=== PATIENT | female | born 1970 | race Caucasian/White ===

== ENCOUNTER 2016-07-25 12:35 | Inpatient (IN) ==
--- NOTE | 2016-07-25 13:03 | Emergency Department Note ---
Disposition Clinical Impression: Chest pain Qualifiers: Chest pain type: unspecified Qualified Code(s): R07.9 - Chest pain, unspecified Myocardial infarction Qualifiers: Myocardial infarction ST status: non-ST elevation myocardial infarction Qualified Code(s): I21.4 - Non-ST elevation (NSTEMI) myocardial infarction Disposition: Admitted As Inpatient Referrals: Violetta Forrest MD [Primary Care Provider] - Forms: ED Satisfaction Letter Time of Disposition: 13:16 Chest Pain HPI - General Chief Complaint: ED Chest Pain Stated Complaint: abnormal EKG, back pain Time Seen by Provider: 07/25/16 12:48 Source: patient Mode of arrival: ambulatory Limitations: no limitations Vital Signs Reviewed: Yes Nursing Notes Reviewed: Yes - History of Present Illness HPI Narrative: 45-year-old whose been having some chest discomfort today. States it started in her back and she thought it was musculoskeletal she was seen at the urgent care and by her family doctor. After saw her today did an EKG and a set her in as she has some poor R-wave progression anteriorly and she has some changes on her EKG that are new. Pt complaint: chest pain Onset (ago): Just DATE PULLER Duration: constant Onset: during rest, during exertion Pain Location: substernal, left chest Severity: moderate Severity scale (1-10): 8 Quality: tightness Pain Radiation: none Improves with: nothing Worsens with: nothing Associated symptoms: Denies: nausea, vomiting, diaphoresis - Related Data Home Medications Medication Instructions Recorded Confirmed Ascorbic Acid [Vitamin C] 100 mg PO DAILY 11/04/15 07/25/16 Cranberry Fruit Extract [Cranberry] 425 mg PO DAILY 11/04/15 07/25/16 Fluticasone Propionate Nasal 2 spr NS DAILY 11/04/15 07/25/16 [Flonase] Multivitamin [Multivitamins] 1 cap PO DAILY 11/04/15 07/25/16 Norethindrone Acetate 5 mg PO HS 11/04/15 07/25/16 Omeprazole 20 mg PO DAILY 11/04/15 07/25/16 Previous Rx's Medication Instructions Recorded Ibuprofen [Motrin] 600 mg PO Q6HR PRN #30 tab 11/04/15 Cyclobenzaprine [Flexeril] 10 mg PO TID #15 tablet 07/24/16 MethylPREDNISolone [Medrol] 4 mg PO TAPER #21 tablet 07/24/16 Allergies Allergy/AdvReac Type Severity Reaction Status Date / Time aspirin AdvReac Gastrointestinal Verified 07/25/16 13:29 Upset sertraline [From Zoloft] AdvReac Gastrointestinal Verified 07/25/16 13:29 Upset Constitutional: Denies: fever, chills, weakness, weight change Eyes: Denies: eye pain, eye discharge, vision change ENT ED: Denies: ear pain, throat pain, dental pain, hearing loss, epistaxis, congestion, dysphagia Cardiovascular: Reports: chest pain. Denies: palpitations, dyspnea on exertion , edema, syncope Respiratory: Denies: cough, dyspnea, wheezes, hemoptysis, stridor Gastrointestinal: Denies: abdominal pain, nausea, vomiting, diarrhea, constipation, hematemesis, melena, hematochezia Genitourinary: Denies: dysuria, frequency, hematuria, discharge Musculoskeletal: Reports: back pain. Denies: neck pain, arthralgia, myalgia Integumentary: Denies: rash, abrasion, lesions Neurological: Denies: headache, weakness, numbness, paresthesias, confusion, abnormal gait, vertigo Psychiatric: Denies: anxiety, depression, suicidal thoughts, homicidal thoughts , auditory hallucinations, visual hallucinations Endocrine: Denies: fatigue Hematological/Lymphatic: Denies: easy bleeding, easy bruising Allergic/Immunologic: Denies: facial swelling, urticaria Chest Pain PMH - Past Medical History Medical history: Reports: other Surgical history: Reports: cholecystectomy Psychiatric history: Reports: no psych history - Social History Smoking Status: Current every day smoker Alcohol use: Reports: none Drug use: Reports: none Physical Exam - General Limitations: no limitations General appearance: alert - Head Head exam: atraumatic, normocephalic, normal inspection - Eye Eye exam: Present: normal appearance, PERRL, EOMI - ENT ENT exam: normal exam, normal oropharynx, mucous membranes moist - Neck Neck exam: Present: normal inspection, full ROM, trachea midline - Chest Chest inspection: Present: normal inspection, symmetric chest wall rise - Respiratory Respiratory exam: Present: normal lung sounds bilaterally - Cardiovascular Cardiovascular exam: Present: regular rate, normal rhythm, normal heart sounds - Abdominal Exam Abdominal exam: Present: soft, Non-Tender. Absent: tenderness, distention, guarding, rebound, rigidity - Extremities Exam Extremities exam: Present: normal inspection, full ROM. Absent: tenderness, pedal edema - Expanded Lower Extremity Exam Neurovascular/Tendon exam: Absent: motor deficit, sensory deficit, tendon deficit Gait: observed and normal - Back Exam Back exam: Present: normal inspection, full ROM. Absent: tenderness - Neurological Exam Neurological exam: Present: alert, oriented X3 - Psychiatric Psychiatric exam: Present: normal affect, normal mood - Skin Skin exam: Present: warm, dry, intact, normal color Course - Consultations Consultation #1: Discussed with Dr. Mendoza, we will send copies of the EKG to the patient. Time: 13:03 Consultation #2: Dr. Mendoza reviewed the EKG and will take the patient to the laboratory administrative director. Dr. Mendoza does not want a STEMI called. Animal Shelter Manager was notified of the positive troponin at 21+. Brelinta and heparin were not given in the ER per request of cardiology. Time: 13:14 Vital Signs Temperature 98.0 F 07/25/16 12:40 Pulse Rate 110 07/25/16 12:40 Respiratory Rate 16 07/25/16 12:40 Blood Pressure 122/85 07/25/16 12:40 O2 Sat by Pulse Oximetry 100 07/25/16 12:40 Temperature 98.0 F 07/25/16 12:40 Pulse Rate 123 07/25/16 13:21 Respiratory Rate 16 07/25/16 13:30 Blood Pressure 147/101 07/25/16 13:30 O2 Sat by Pulse Oximetry 100 07/25/16 13:21 Oxygen Delivery Oxygen Delivery Room Air Chest Pain - Lab Data Result diagrams: 07/25/16 13:03 07/25/16 13:03 Lab Results 07/25/16 07/25/16 07/25/16 Range/Units 13:03 13:03 13:03 WBC 21.1 H (4.3-11.1) K/mcL RBC 4.75 (3.82-4.97) M/mcL Hgb 15.4 (11.5-15.4) g/dL Hct 45.6 H (35.3-44.9) % MCV 96.0 (83.0-100.0) fL MCH 32.4 (28.0-33.3) pg MCHC 33.8 (31.6-35.5) g/dL RDW 13.2 (11.5-14.5) % Plt Count 191 (140-400) K/mcL MPV 10.7 (9.4-12.4) fL Immature Gran % 0.4 (0-4) % Seg Neutrophils % 70.4 % Lymphocytes % 22.5 % Monocytes % 5.9 % Eosinophils % 0.5 % Basophils % 0.3 % Neutrophils # 14.8 H (1.6-8.9) K/mcL Lymphocytes # 4.8 H (0.6-4.6) K/mcL Monocytes # 1.3 (0.0-1.3) K/mcL Eosinophils # 0.1 (0.0-0.6) K/mcL Basophils # 0.1 (0.0-0.2) K/mcL PT 10.5 (9.4-12.1) Seconds INR 1.0 APTT 38.2 H (26.0-36.0) Seconds Sodium 140 (136-145) mEq/L Potassium 3.5 (3.5-4.5) mEq/L Chloride 106 (98-109) mEq/L Carbon Dioxide 22 (19-29) mEq/L BUN 7 (7-20) mg/dL Creatinine 0.76 (0.57-1.11) mg/dL Est GFR ( Amer) > 60 (> 60) Est GFR (Non-Af Amer) > 60 (> 60) BUN/Creatinine Ratio 9 (6-26) Glucose 94 (70-99) mg/dL Calculated Osmolality 288 (280-300) Calcium 9.6 (8.6-10.8) mg/dL Troponin I (0-0.03) ng/mL 07/25/16 Range/Units 13:03 WBC (4.3-11.1) K/mcL RBC (3.82-4.97) M/mcL Hgb (11.5-15.4) g/dL Hct (35.3-44.9) % MCV (83.0-100.0) fL MCH (28.0-33.3) pg MCHC (31.6-35.5) g/dL RDW (11.5-14.5) % Plt Count (140-400) K/mcL MPV (9.4-12.4) fL Immature Gran % (0-4) % Seg Neutrophils % % Lymphocytes % % Monocytes % % Eosinophils % % Basophils % % Neutrophils # (1.6-8.9) K/mcL Lymphocytes # (0.6-4.6) K/mcL Monocytes # (0.0-1.3) K/mcL Eosinophils # (0.0-0.6) K/mcL Basophils # (0.0-0.2) K/mcL PT (9.4-12.1) Seconds INR APTT (26.0-36.0) Seconds Sodium (136-145) mEq/L Potassium (3.5-4.5) mEq/L Chloride (98-109) mEq/L Carbon Dioxide (19-29) mEq/L BUN (7-20) mg/dL Creatinine (0.57-1.11) mg/dL Est GFR ( Amer) (> 60) Est GFR (Non-Af Amer) (> 60) BUN/Creatinine Ratio (6-26) Glucose (70-99) mg/dL Calculated Osmolality (280-300) Calcium (8.6-10.8) mg/dL Troponin I 21.96 H* (0-0.03) ng/mL - EKG Data EKG attestation: Yes I reviewed and interpreted this EKG. EKG shows normal: sinus rhythm Rate: tachycardia Heart Score - Score History: Moderately Suspicious EKG: Significant ST-Depression Age: Less than 45 Risk Factors: 1-2 risk factors Troponin: Less than normal limit HEART Score Total: 4
[2016-07-25] MEDS ORDERED: Aspirin 81 MG TAB.CHEW PO STA (13:15)
[2016-07-25 13:17] LABS: Prothrombin Time 10.5 Seconds (9.4-12.1)
[2016-07-25 13:19] LABS: Activated Partial Thrombo Time 38.2 Seconds (26.0-36.0); Basophils # 0.1 K/mcL (0.0-0.2); Basophils % 0.3 %; Eosinophils # 0.1 K/mcL (0.0-0.6); Eosinophils % 0.5 %; Hematocrit 45.6 % (35.3-44.9); Hemoglobin 15.4 g/dL (11.5-15.4); Immature Granulocytes % 0.4 % (0-4); Lymphocytes # 4.8 K/mcL (0.6-4.6); Lymphocytes % 22.5 %; Mean Corpuscular HGB Conc 33.8 g/dL (31.6-35.5); Mean Corpuscular Hemoglobin 32.4 pg (28.0-33.3); Mean Platelet Volume 10.7 fL (9.4-12.4); Monocytes # 1.3 K/mcL (0.0-1.3); Monocytes % 5.9 %; Neutrophils # 14.8 K/mcL (1.6-8.9); Platelet Count 191 K/mcL (140-400); Red Blood Count 4.75 M/mcL (3.82-4.97); Red Cell Distribution Width 13.2 % (11.5-14.5); Segmented Neutrophils % 70.4 %
[2016-07-25 13:22] LABS: BUN/Creatinine Ratio 9 (6-26); Blood Urea Nitrogen 7 mg/dL (7-20); Calcium 9.6 mg/dL (8.6-10.8); Carbon Dioxide 22 mEq/L (19-29); Chloride 106 mEq/L (98-109); Glucose 94 mg/dL (70-99); Osmolality,Calculated 288 (280-300); Potassium 3.5 mEq/L (3.5-4.5); Sodium 140 mEq/L (136-145); eGFR For African Americans > 60 (> 60); eGFR For Non-African Americans > 60 (> 60)
[2016-07-25] MEDS ORDERED: Verapamil 5 MG/2 ML VIAL ONE (13:22)
[2016-07-25] MEDS ORDERED: Nitroglycerin 1,000 MCG/10 ML VIAL IV ONE (13:23)
[2016-07-25] MEDS ORDERED: *HR* Heparin 10,000 UNIT/10 ML VIAL ONE (13:23)
[2016-07-25] MEDS ORDERED: Heparin 1,000 UNITS/500 mL NS 500 ML ONE (13:23)
--- NOTE | 2016-07-25 13:32 | Pre-Sedation Evaluation ---
Pre-sedation evaluation - Pre-sedation checklist Date of procedure: 07/25/16 Procedure: [facility] Recent Vitals: Last Vital Signs Temp 98.0 F 07/25/16 12:40 Pulse 123 07/25/16 13:21 Resp 16 07/25/16 13:30 BP 147/101 07/25/16 13:30 Pulse Ox 100 07/25/16 13:21 H&P (including ROS) documented in medical record: Yes Previous reaction to sedatives/anesthetics: No Dietary Status: NPO after Midnight Airway Assessment: Patient can open mouth completely, TMJ function normal ASA Classification *see protocol: CLASS II-Mild systemic disease Plan of Care: Pt appropriate candidate for procedure/moderate/conscious sedation , Risks/benefits of procedure/sedation discussed w/ patient/family
[2016-07-25] MEDS ORDERED: 0.9 % Sodium Chloride 1,000 ML ONE ×2 (13:38→14:26)
[2016-07-25] MEDS ORDERED: *HR* Midazolam HCl 2 MG/2 ML VIAL ONE ×2 (13:39→13:43)
[2016-07-25] MEDS ORDERED: *HR* FentaNYL (PF) 100 MCG/2 ML VIAL ONE (13:39)
[2016-07-25] MEDS ORDERED: Tirofiban 5 MG/100ML 5 MG/100 ML BAG IV ONE (14:10)
[2016-07-25] MEDS ORDERED: *HR* Ticagrelor 90 MG TABLET ONE (14:15)
--- NOTE | 2016-07-25 14:41 | Invasive Diagnostic Lab Proc ---
Name: Elissa Cancino Date of Study: 07/25/2016 Date: 1970 Ht: 65.0in Medical Record#: [id number] Age: 45 Wt: 137.79lb Gender: Female BSA: 1.69 Order #: [id number] BMI: 22.96 Physicians Procedure Physician: Alton Mendoza MD, [facility] Referring MD: Referring MD: Staff Name Position Time In Jackie Leung RN Track Production Engineer 01:36 PM Linda Garvin RT (R) Monitor 01:36 PM Marcia Rosa RT (R) Scrub 01:36 PM Indications Indication Non-Stemi Procedures Performed Procedure L HRT ARTERY/VENTRICLE ANGIO PRQ CARD YOHANA STENT W/ANGIO 1 VSL Pre-Procedure Checklist Informed consent is complete signed and on chart. H\\T\\P is on chart. ID band is on and ID verified with patient. Patient NPO for procedure The procedure was described for the patient and questions were answered. Blood Pressure: 122/92 ECG is on chart. Rhythm: NSR Plan of Care Patient will tolerate the procedure without complications. Adequate level of comfort will be maintained. Hemodynamics will remain stable Patient will recover from procedure without complications. Respiratory function will be maintained. Cardiac rhythm will remain stable. Patient temperature will be maintained. Patient and/or family have verbalized understanding of the procedure. Patient Education Chief Complaint/Reason for Test: Cardiac Cath Developmental Category: Adult (18-64 years) Developmentally Appropriate for Age: Yes Learning Barriers: None Education Needs: Procedure Education Method: Verbal Information Taught: Cardiac Cath Educational Evaluation: Able to repeat information Intravenous Access Time IV Size Location DC'd Fluid/Drip Rate Units RN 01:35 PM 18g 1 1/4" Patent On Arrival Rt Antecubital Jackie Leung RN 01:35 PM 18g 1 1/4" Patent On Arrival Lt Antecubital 0.9NaCl 25 ml/hr Jackie Leung RN Allergies ASA-IRRITATES STOMACH;ZOLOFT-HEART RATE sertraline Salicylate, Aspirin SSRI aspirin Vital Signs Time BP (mmHg) HR (bpm) O2 Sat. RR (bpm) LOC 01:38 PM / % 5 = Fully awake and oriented or at pre-proc level 01:38 PM / % 4 = Oriented but drowsy 01:53 PM / % 4 = Oriented but drowsy 02:08 PM / % 5 = Fully awake and oriented or at pre-proc level 01:38 PM 122 / 92 105 100 % 9 01:43 PM 131 / 88 101 100 % 10 01:48 PM 124 / 73 94 100 % 20 01:53 PM 122 / 79 100 100 % 20 01:58 PM 120 / 74 110 100 % 21 02:03 PM 110 / 73 94 100 % 14 02:08 PM 118 / 77 96 100 % 34 02:13 PM 122 / 65 121 100 % 22 02:18 PM 129 / 80 86 100 % 17 02:23 PM 109 / 68 93 100 % 02:28 PM 114 / 68 % Procedural Medications Time Medication Dose Units Method Given By 01:37 PM Oxygen 2 L/min nasal cannula Jackie Leung RN 01:40 PM Lidocaine 2% 17 ml Subcutaneous Alton Mendoza MD, FACC 01:40 PM Versed 2 mg Intravenous Jackie Leung RN 01:40 PM Fentanyl 50 mcg Intravenous Jackie Leung RN 01:42 PM Versed 1 mg Intravenous Jackie Leung RN 01:42 PM Fentanyl 25 mcg Intravenous Jackie Leung RN 01:58 PM Heparin 3000 units Intravenous Jackie Leung RN 02:11 PM Nitroglycerin 200 mcg Intracoronary Alton Mendoza MD 02:12 PM Aggrastat Bolus: 33 ml Intravenous Jackie Leung RN 02:14 PM Aggrastat 12.5mg/250ml 12 ml/hr Intravenous Jackie Leung RN 02:17 PM Brilinta 180 mg Orally Jackie Leung RN ASA Classification: CLASS II- Mild systemic disease (i.e. well-controlled diabetes, hypertension, asthma, cigarette smoking) Laine Score Preprocedure Postprocedure Activity 2- Moves 4 extremities sustained head lift Activity 2- Moves 4 extremities sustained head lift Circulation 2- SBP +/= 20 points of pre-anesthetic level Circulation 2- SBP +/= 20 points of pre-anesthetic level Consciousness 2- Awake and alert oriented x 3 Consciousness 2- Awake and alert oriented x 3 O2 Saturation 2- Able to maintain O2 satruation of 92% on room air O2 Saturation 2- Able to maintain O2 satruation of 92% on room air Respiratory 2- Able to deep breathe and cough well Respiratory 2- Able to deep breathe and cough well Total Score 10 Total Score 10 Contrast Agent: Isovue Diagnostic Contrast: 170 ml Total Contrast: 170 ml Fluoro Dose: 280 mGy Activated Clotting Time Time Seconds to Clot 02:21 PM 236 Procedure Log Time Note Enter By :36 PM Physician arrived :36 36 PM Pt arrived to phlebotomist medical lab assistant 2 at :36 PM Jackie Leung RN Position: Track Production Engineer Time in: 36 PM Linda Garvin RT (R) Position: Monitor Time in: 36 PM Marcia Rosa RT (R) Position: Scrub Time in: :36 36 PM Patient charges- Angio tray pack, Navilyst 3mm J, Pulse Oximetry and ACIST tubing and transducer PM IV Supplies used: J loop Angio Cath. PM Physician arrived :37 PM ASA Class CLASS II- Mild systemic disease (i.e. well-controlled diabetes, hypertension, asthma, cigarette smoking) PM Sign in performed according to hospital policy. Procedure start : PM Time: 13:37 Oxygen on at 2 L/min per nasal cannula by Jackie Leung RN PM Vitals capture started with the following parameters, Patient=Adult, Interval=5 min, Initial Klxsghce=527 mmHg, Deflation Rate=5 mmHg, Cuff placed on Right Arm :37 PM CathStat :38 PM QI=104 bpm, QVPQ=937/92 mmhg, PrF1=515.0 %, Resp=9 B/min :38 PM Time: 13:37 Patient comfortable and pain free: Yes Time: :38LOC: 5 = Fully awake and oriented or at pre-proc level PM Clinical Presentation: Non-STEMI PM Time out performed according to hospital policy PM Time: 13:40 17 ml Lidocaine 2% to right groin Subcutaneous Given by Alton Mendoza MD, [facility] PM Time: 13:40 Versed 2 mg Intravenous Given by Jackie Leung RN PM Time: 13:40 Fentanyl 50 mcg Intravenous Given by Jackie Leung RN dspellman 01:41 PM Pressure channel 1 zeroed. 01:42 PM Time: 13:42 Versed 1 mg Intravenous Given by Jackie Leung RN dspellman 01:43 PM Time: 13:42 Fentanyl 25 mcg Intravenous Given by Jackie Leung RN dspellman 01:43 PM AP=905 bpm, IYSV=326/88 mmhg, OjK8=761.0 %, Resp=10 B/min 01:44 PM Access obtained by percutaneous puncture. 6Fr 10cm Terumo Maybell sheath placed in right Femoral artery. [id number] dspellman 01:44 PM 6Fr EBU 3.5 Activaided Orthoticstronic guide catheter was used to cannulate the PCI vessel successfully. reused? No dspellman :44 PM 0.035 145cm Navilyst 3mmJ wire [id number] dspellman 01:44 PM LCA angiography performed in multiple views. dspellman 01:45 PM Recorded Pressure: Ao, HR=95, Condition=Condition 1 (Aorta) Ao 121/79/98 01:46 PM Recorded Pressure: Ao, QA=737, Condition=Condition 1 (Aorta) Ao 118/78/96 01:47 PM Catheter removed dspellman 01:47 PM 5Fr FR 4 catheter inserted over the wire [facility] dspellman 01:47 PM RCA angiography performed in multiple views. dspellman 01:48 PM HR=94 bpm, FBNV=666/73 mmhg, MjA2=729.0 %, Resp=20 B/min 01:49 PM Lesion found in 1st Diagonal. Pre Stenosis: 70 Pre AYLA Flow: 3: Complete and Brisk Flow/Perfusion dspellman 01:49 PM Catheter removed dspellman 01:49 PM 5Fr Pigtail catheter inserted over the wire [facility] dspellman 01:49 PM Catheter selectively placed in left ventricle dspellman 01:50 PM Recorded Pressure: LV, SF=545, Condition=Condition 1 (Left Ventricle) LV 114/24/67 01:50 PM Recorded Pressure: LV, HR=94, Condition=Condition 1 (Left Ventricle) LV 134/13/69 01:51 PM Bolus angiogram of left Ventricle complete: 10 ml/sec for a total of 30 mls dspellman 01:51 PM Bolus angiogram of left Ventricle complete: 11 ml/sec for a total of 35 mls dspellman 01:52 PM Recorded Pressure: LV, Ao, HR=96, Condition=Condition 1 (Left Ventricle) LV 119/-1/17, (Aorta) Ao 122/72/98 01:53 PM CS=333 bpm, ZPEU=833/79 mmhg, YzY3=500.0 %, Resp=20 B/min, Comment=NSR :53 PM Time: 13:38LOC: 4 = Oriented but drowsy dspell:53 PM Time: 13:38 Patient comfortable and pain free: Yes dspell 01:54 PM Catheter removed dsp:54 PM reviewing images dspell 01:55 PM 5Fr FL 4 catheter inserted over the wire DNC dspell:57 PM Catheter removed dspell:57 PM 6Fr EBU 3.25 Medtronic guide catheter was used to cannulate the PCI vessel successfully. reused? No 01:58 PM TN=211 bpm, JPWK=560/74 mmhg, WiF7=012.0 %, Resp=21 B/min, Comment=NSR :58 PM Time: 13:58 Heparin 3000 units Intravenous Given by Jackie Leung RN Berry pump ell 01:59 PM Recorded Pressure: Ao, HR=95, Condition=Condition 1 (Aorta) Ao 115/73/91 02:00 PM .014 PT Graphix 182cm guide wire across target lesion- successful. reused? No dsp 02:00 PM Inflation device was opened. dspell 02:01 PM Recorded Pressure: Ao, HR=95, Condition=Condition 1 (Aorta) Ao 106/73/88 02:01 PM wire out to reshape dspell 02:03 PM HR=94 bpm, QPHS=457/73 mmhg, CwO8=823.0 %, Resp=14 B/min, Comment=NSR 02:05 PM Recorded Pressure: Ao, UJ=253, Condition=Condition 1 (Aorta) Ao 101/73/87 02:06 PM PCI lesion in 1st Diagonal. dspell 02:06 PM wire in the 1st diag dspell 02:07 PM 2.0 mm x 8 mm Emerge Monorail balloon across target lesion- successful. reused? No dspellman 02:08 PM HR=96 bpm, ZMQJ=200/77 mmhg, BpO7=491.0 %, Resp=34 B/min, Comment=NSR 02:08 PM Time: 13:53 Patient comfortable and pain free: Yes dspell 02:08 PM Time: 13:53LOC: 4 = Oriented but drowsy dspell 02:09 PM Balloon inflated @ 12 neha for 30 seconds dspell 02:10 PM Balloon catheter removed intact. dspell 02:10 PM 2.25mm x 16mm Synergy drug-eluting stent across target lesion- successful Lot #[id number] dspell 02:11 PM Time: 14:11 Nitroglycerin 200 mcg Intracoronary Given by Alton Mendoza MD dsp 02:12 PM Stent deployed @ 14 neha for 30 seconds dspell 02:13 PM PB=296 bpm, WVZY=780/65 mmhg, ViA5=376.0 %, Resp=22 B/min, Comment=NSR 02:13 PM Time: 14:12 Aggrastat Bolus: 33 ml Intravenous Given by Jackie Leung RN Berry pump dspell 02:13 PM Stent delivery system removed intact. dspell 02:13 PM Guide wire removed intact. dsp 02:14 PM Guide catheter removed intact. 02:14 PM Recorded Pressure: Ao, GB=422, Condition=Condition 1 (Aorta) Ao 116/70/89 02:15 PM Time: 14:14 Aggrastat 12.5mg/250ml 12 ml/hr Intravenous Given by Jackie Leung RN Berry pump 02:17 PM Time: 14:17 Brilinta 180 mg Orally Given by Jackie Leung RN khushi 02:18 PM HR=86 bpm, TZLW=233/80 mmhg, UdF4=262 %, Resp=17 B/min 02:21 PM At 14:21 the ACT was 236 seconds. ell 02:22 PM Procedure completed at 14:22 dspell:23 PM Sign out completed: Radiation Dose 280.04 mGy Fluoro Time: 7.0 Isovue 370 - 200ml contrast 170.2 ml given by Alton Mendoza MD, FACC. Complications: NoneCardiac Rehab Consult needed: YesConfirmed administered medications: Yes dspell:23 PM Isovue 370 - 200ml,1 Bottle(s) used. :23 PM Sheath left in place to be pulled on floor/holding areaV+Pad dspellman 02:23 PM HR=93 bpm, CAEF=392/68 mmhg, QjE9=592.0 % 02:23 PM Post ECG NSR dspell:23 PM Post Blood Pressure 109/68 dspell:25 PM Time: 14:08LOC: 5 = Fully awake and oriented or at pre-proc level dsp:25 PM Time: 14:08 Patient comfortable and pain free: Yes : PM 14:25 Post Pulses Bilateral DP \\T\\ PT 2+ dsp 02:25 PM Information taught Cardiac Cath : PM Education needs Procedure and Plan of Care dsp: PM Learning barriers :None :25 PM Education Methods Verbal : PM Education evaluation Able to repeat information : PM Site status No bleeding/hematoma - Rt Groin as reported by Marcia Rosa RT (R) at 14:26 ell 02:26 PM Opsite applied : PM Report given to Anyi MART Pt taken to 2N Room #12. 14:26 dsp 02: PM Family placed in consult room. 02:27 PM Complications: None : PM Fluoro Time: 7 : PM Isovue 370 - 200ml contrast 170.2 ml given by Alton Mendoza MD, [facility]. :27 PM Radiation Dose 280.04 mGy 02:28 PM WXDI=325/68 mmhg, Comment=NSR Complications Complication None None Hemodynamics Pressures Site Systolic/A Wave Diastolic/V Wave Mean AO 121 79 98 AO 118 78 96 LV 114 24 67 LV 134 13 69 LV 119 -1 17 AO 122 72 98 AO 115 73 91 AO 106 73 88 AO 101 73 87 AO 116 70 89 Post Procedure Information Blood Pressure: 109/68 mmHg Rhythm: NSR Post procedural instructions were given Closure Device Time Device Success/Fail 07/25/2016 2:27:00 PM Site Checks Time Location Status Staff Sheath In? Note 02:26 PM Rt Groin No bleeding/hematoma Marcia Rosa RT (R) Yes Pulses Time Site Pre-Procedure Post-Procedure Note 07/25/2016 1:36:00 PM Bilateral DP \\T\\ PT 07/25/2016 1:36:00 PM Bilateral radial 2:25:00 PM Bilateral DP \\T\\ PT 2+ Updated by Linda Garvin, RT (R) on 07/25/2016 2:36:18 PM Linda Garvin RT electronically signed on 07/25/2016 2:37:09 PM with status of Final
[2016-07-25] MEDS ORDERED: *HR* Morphine 2 MG/ML SYRINGE IVP ONE (15:23)
[2016-07-25] MEDS ORDERED: Acetaminophen 325 MG TABLET PO PRN (15:27)
[2016-07-25] MEDS ORDERED: Ondansetron 4 MG/2 ML VIAL IVP PRN (15:29)
[2016-07-25] MEDS ORDERED: Tirofiban 12.5 MG/250ML 12.5 MG/250 ML BAG IVC SCH (15:30)
[2016-07-25] MEDS ORDERED: Nitroglycerin 0.4 MG TAB.SUBL SL PRN (15:35)
[2016-07-25] MEDS: 0.9 % Sodium Chloride 1,000 ML IVC SCH ×2 (15:50→23:20)
--- NOTE | 2016-07-25 15:50 | Cardiology History & Physical ---
Date of Encounter: 07/25/16 Time of Encounter: 15:30 Assessment and Plan (1) Non-STEMI (non-ST elevated myocardial infarction) Current Visit: Yes Status: Acute Acute TX with troponin ~21 and ongoing chest discomfort with concern for lateral current of injury not meeting STEMI criteria. Emergent LHC, aspirin, heparin and EF assessment. The assessment and plan as outlined above was discussed with the patient and/or family members who expressed understanding and agreement. All questions were answered. (2) Nicotine dependence Current Visit: Yes Status: Acute smoking cessation counseled, nicotine patch prn. The assessment and plan as outlined above was discussed with the patient and/or family members who expressed understanding and agreement. All questions were answered. Qualifiers: Nicotine product type: cigarettes Substance use status: uncomplicated Qualified Code(s): F17.210 - Nicotine dependence, cigarettes, uncomplicated History of Present Illness Chief complaint: Chest pain HPI: Ms. Cancino is a 45 year old female smoker and no previous cardiac history presented with Monday onset of severe upper back radiating around to chest discomfort going to urgent care on Monday treated for musculoskeletal pain, seen at PCP office Monday with abnormal EKG referred to ED. She had ongoing chest pain and lateral current of injury not meeting STEMI criteria. Patient emergently taken to [facility]. Past Med Surg Social Fam HX - Past Medical History Medical history: other Psychiatric history: no psych history - Past Surgical History Surgical History: cholecystectomy - Social History Smoking Status: Current every day smoker Packs per day: 1.5 Smokeless Tobacco Status: No Alcohol use: none Drug use: none Medications and Allergies Ascorbic Acid [Vitamin C] 100 mg PO DAILY 11/04/15 [History] Cranberry Fruit Extract [Cranberry] 425 mg PO DAILY 11/04/15 [History] Fluticasone Propionate Nasal [Flonase] 2 spr NS DAILY 11/04/15 [History] Ibuprofen [Motrin] 600 mg PO Q6HR PRN #30 tab 11/04/15 [Rx] Multivitamin [Multivitamins] 1 cap PO DAILY 11/04/15 [History] Norethindrone Acetate 5 mg PO HS 11/04/15 [History] Omeprazole 20 mg PO DAILY 11/04/15 [History] Cyclobenzaprine [Flexeril] 10 mg PO TID #15 tablet 07/24/16 [Rx] MethylPREDNISolone [Medrol] 4 mg PO TAPER #21 tablet 07/24/16 [Rx] Allergies aspirin Adverse Reaction (Verified 07/25/16 13:29) Gastrointestinal Upset sertraline [From Zoloft] Adverse Reaction (Verified 07/25/16 13:29) Gastrointestinal Upset All Systems Review: A 10-system review of systems was performed and is negative for pertinent findings except as documented above in the HPI. - Constitutional Constitutional: no chills, no fever(s) - EENT Eyes: no blurred vision, no loss of vision - Cardiovascular Cardiovascular: chest pain at rest, chest pain with exertion - Respiratory Respiratory: no hemoptysis, no wheezing - Gastrointestinal Gastrointestinal: no hematemesis, no hematochezia - Genitourinary Genitourinary: no dysuria, no hematuria - Musculoskeletal Musculoskeletal: back pain, no muscle weakness - Integumentary Integumentary: no rash, no unusual bruising - Neurological Neurological: no memory loss, no numbness - Psychiatric Psychiatric: no hallucinations, no panic attacks - Hematological/Lymphatic Hematologic/Lymphatic: no easy bleeding, no easy bruising Physical Examination Vital Signs, Last 4 Hours Temp Pulse Pulse Resp BP Pulse Ox 07/25/16 14:52 98.2 F 88 16 121/82 100 07/25/16 14:50 88 81 12 121/82 100 General: Conversant, Other (mild distress) HEENT: Atraumatic, Normocephaly, Mucus Membranes Moist Neck: No JVD Cardiac: Reg Rate and Rhythm, No Murmur Lungs: Normal Breath Sounds Neuro: Alert and responsive, No focal deficits noted Abdomen: Soft, Non-Tender Skin: No rashes noted on visualized skin Musculoskeletal: No Chest Wall Tenderness Extremities: No Edema Results 07/25/16 13:03 07/25/16 13:03 - EKG Interpretation EKG results cardiology: personally reviewed
[2016-07-25] MEDS: *HR* OxyCODONE/APAP 5/325 TABLET PO PRN ×2 (17:15→22:40)
--- NOTE | 2016-07-25 18:22 | Event Note ---
Date of Encounter: 07/25/16 Time of Encounter: 14:00 - Cardiology Event Note s/p PCI diagonal YOHANA x 1 for NSTEMI 70% and lateral current of injury. Anterolateral hypokinesis on LVgram with EF ~45%. Also evaluated for occluded OM, but no occluded vessel was found or wired. At conclusion of procedure, patient asymptomatic and vitals stable.
[2016-07-25] MEDS: Nicotine 21 MG PATCH.TD24 TD SCH (19:27)
[2016-07-25] MEDS ORDERED: *HR* Atropine Sulfate 1 MG/10 ML SYRINGE ONE (21:31)
[2016-07-25] MEDS: *HR* Ticagrelor 90 MG TABLET PO SCH (22:41)
[2016-07-25] MEDS ORDERED: NORETHINDRONE 5MG PO SCH (23:00)
[2016-07-26] MEDS: *HR* OxyCODONE/APAP 5/325 TABLET PO PRN (02:49)
[2016-07-26 05:49] LABS: Basophils % 0.2 %; Red Cell Distribution Width 13.2 % (11.5-14.5)
[2016-07-26 05:51] LABS: Eosinophils # 0.1 K/mcL (0.0-0.6); Eosinophils % 0.5 %; Hematocrit 36.6 % (35.3-44.9); Hemoglobin 12.3 g/dL (11.5-15.4); Immature Granulocytes % 0.4 % (0-4); Immature Platelets 11.4 % (1.1-6.1); Lymphocytes # 3.1 K/mcL (0.6-4.6); Lymphocytes % 22.9 %; Mean Corpuscular HGB Conc 33.6 g/dL (31.6-35.5); Mean Corpuscular Hemoglobin 32.4 pg (28.0-33.3); Mean Corpuscular Volume 96.3 fL (83.0-100.0); Mean Platelet Volume 11.7 fL (9.4-12.4); Monocytes # 1.2 K/mcL (0.0-1.3); Monocytes % 8.6 %; Segmented Neutrophils % 67.4 %
[2016-07-26 05:54] LABS: Platelet Count 94 K/mcL (140-400)
[2016-07-26 06:07] LABS: BUN/Creatinine Ratio 11 (6-26); Blood Urea Nitrogen 7 mg/dL (7-20); Calcium 8.6 mg/dL (8.6-10.8); Carbon Dioxide 19 mEq/L (19-29); Chloride 110 mEq/L (98-109); Glucose 110 mg/dL (70-99); Osmolality,Calculated 285 (280-300); Potassium 3.9 mEq/L (3.5-4.5); Sodium 138 mEq/L (136-145); eGFR For African Americans > 60 (> 60); eGFR For Non-African Americans > 60 (> 60)
[2016-07-26] MEDS ORDERED: *HR* Enoxaparin 30 MG/0.3 ML SYRINGE SQ SCH (07:00)
[2016-07-26] MEDS ORDERED: *HR* Enoxaparin 40 MG/0.4 ML SYRINGE SQ SCH (07:00)
[2016-07-26] MEDS: *HR* Ticagrelor 90 MG TABLET PO SCH (07:59)
[2016-07-26] MEDS: Nicotine 21 MG PATCH.TD24 TD SCH (08:04)
[2016-07-26] MEDS ORDERED: Aspirin 81 MG TAB.CHEW PO SCH (09:00)
[2016-07-26] MEDS ORDERED: Nicotine 21 MG PATCH.TD24 TD SCH (09:00)
[2016-07-26 11:44] VITALS: BP 102/68
--- NOTE | 2016-07-26 11:53 | Cardiology Progress Note ---
Date of Encounter: 07/26/16 Time of Encounter: 11:51 Assessment and Plan (1) Thoracic back pain Current Visit: No Status: Chronic Qualifiers: Chronicity: unspecified Back pain laterality: midline Qualified Code(s): M54.6 - Pain in thoracic spine Discussion w patient/family: The assessment and plan as outlined above was discussed with the patient and/or family members who expressed understanding and agreement. All questions were answered. Thank you for involving us in the care of your patient. Please call with any questions. I have reassured them I do not think this is cardiac in nature . That this is MS will get C spine xrays restart flexeril put a lidoderm patch d/c home today to follow up with Primary and [facility] [employer] no signs of ischemia Subjective Principal diagnosis: s/p stent , back pain persists, central , increased with touch and turning Interval history: chest pain has improved CT scan done shows mild DJD in spine Objective Vital Signs, Last 4 Hours Temp Pulse Resp BP Pulse Ox 07/26/16 11:39 97.5 F L 80 18 102/68 98 07/26/16 11:22 64 07/26/16 10:24 102/62 07/26/16 08:05 67 112/72 07/26/16 08:00 79 Results 07/26/16 05:10 07/26/16 05:10 Lab Results 07/26/16 07/26/16 05:10 05:10 WBC 13.4 H Hgb 12.3 D Hct 36.6 Plt Count 94 L D Sodium 138 Potassium 3.9 Chloride 110 H Carbon Dioxide 19 BUN 7 Creatinine 0.63 Glucose 110 H Calcium 8.6 Consult Discharge Plan - Plan Referrals: Violetta Forrest MD [Primary Care Provider] - 08/05/16 9:15 am
--- NOTE | 2016-07-26 14:41 | Discharge Summary ---
Date of Encounter: 07/26/16 Time of Encounter: 14:27 - Discharge Medications Prescriptions: Nitroglycerin 0.4 mg SL Q5MIN PRN #25 tab.subl PRN Reason: Chest Pain Aspirin 81 mg PO DAILY #30 tab.chew Atorvastatin [Lipitor] 80 mg PO HS #30 tablet Lidocaine Patch [Lidoderm 5% patch] 1 each TP DAILY PRN #3 adh..patch PRN Reason: Pain Losartan [Cozaar] 12.5 mg PO DAILY #30 tablet Metoprolol XL (24 HR) Succ [Toprol Xl] 25 mg PO DAILY #30 tab.er.24h Omeprazole [PriLOSEC] 20 mg PO DAILY@0630 #30 capsule.dr Lozada [Brilinta] 90 mg PO BID #60 tablet Home Medications: Ascorbic Acid [Vitamin C] 100 mg PO DAILY 11/04/15 [History] Cranberry Fruit Extract [Cranberry] 425 mg PO DAILY 11/04/15 [History] Fluticasone Propionate Nasal [Flonase] 2 spr NS DAILY 11/04/15 [History] Multivitamin [Multivitamins] 1 cap PO DAILY 11/04/15 [History] Omeprazole 20 mg PO DAILY 11/04/15 [History] Cyclobenzaprine [Flexeril] 10 mg PO TID #15 tablet 07/24/16 [Rx] MethylPREDNISolone [Medrol] 4 mg PO TAPER #21 tablet 07/24/16 [Rx] Aspirin 81 mg PO DAILY #30 tab.chew 07/26/16 [Rx] Atorvastatin [Lipitor] 80 mg PO HS #30 tablet 07/26/16 [Rx] Lidocaine Patch [Lidoderm 5% patch] 1 each TP DAILY PRN #3 adh..patch 07/26/16 [ Rx] Losartan [Cozaar] 12.5 mg PO DAILY #30 tablet 07/26/16 [Rx] Metoprolol XL (24 HR) Succ [Toprol Xl] 25 mg PO DAILY #30 tab.er.24h 07/26/16 [ Rx] Nitroglycerin 0.4 mg SL Q5MIN PRN #25 tab.subl 07/26/16 [Rx] Norethindrone Acetate 5 mg PO HS #0 07/26/16 [Rx] Omeprazole [PriLOSEC] 20 mg PO DAILY@0630 #30 capsule. 07/26/16 [Rx] Ticagrelor [Brilinta] 90 mg PO BID #60 tablet 07/26/16 [Rx] Allergies/Adverse Reactions: Allergies aspirin Adverse Reaction (Verified 07/25/16 13:29) Gastrointestinal Upset sertraline [From Zoloft] Adverse Reaction (Verified 07/25/16 13:29) Gastrointestinal Upset Procedures/tests Complete & Pending: Procedures Performed prior 72 hours Category Date Time Status CT chest w/o contrast [CT chest wo con] [CT] Routine Cat Scan 07/26/16 07:12 Completed ECG 12 lead ECG [ECG] Routine Y 07/25/16 17:37 Completed Date of admission: 07/25/16 18:05 Primary care physician: Violetta Hutchinson Patient Status Disposition: Home, Self-Care Condition: Fair Functional capacity at discharge: independent ambulation Overall status at discharge: patient is not back to baseline - Discharge Instructions Follow Up With: Violetta Forrest MD [Primary Care Provider] - 08/02/16 2:00 pm Additional Instructions: RISK FACTORS: STOP SMOKING: If you smoke, STOP. Smoking or tobacco use significantly increases your risk of heart disease because nicotine causes the arteries to narrow or constrict. It also causes fats to stick to the artery. Your chances of having a heart attack are greatly increased if you continue to smoke. For more information, call the education line for smoking cessation 9-698-KZBOOWV EAT A LOW FAT/CHOLESTEROL/SODIUM DIET: This diet may help reduce your chances of having a heart attack. LIFTING: Avoid lifting anything more than 10 pounds for 5-7 days Prior to straining, laughing, sneezing and/or coughing, apply manual pressure directly over insertion site. ACTIVITY: You may walk or climb stairs as tolerated You can resume sexual activity as tolerated In general, you are encouraged to engage in a minimum of 30 minutes or more of moderate intensity physical activity, such as brisk walking, daily or at least 3 -4 times weekly BATHING Do not submerge the site into water (bath tub, hot tub, swimming pool) for 1 week. This can be a source for infection into the blood stream. You may shower after 24 hours SITE CARE: After 24 hours, you may remove the dressing and leave the site open to air. Keep the site clean and dry. Clean gently and pat dry. You can expect bruising and tenderness that gradually resolve within a week or two. Return to work as instructed per your physician Resume driving as instructed per physician Keep all scheduled follow up appointments Resume medications as instructed IMPORTANT: If prescribed a Platelet Aggregation Inhibitor such as, Plavix, Brilinta or Effient: Duration of therapy is minimum one year These medications are often used in combination with Aspirin in prevention of future heart attacks Never discontinue unless consult with your Capacity Management Specialist STROKE (CVA) Risk factors for a stroke are: Age, cigarette smoking, diabetes, excessive alcohol consumption, family history, high blood pressure, overweight, physical inactivity, prior stroke, heart attack, diagnosis of carotid artery stenosis or other artery disease. Warning signs: Sudden numbness or weakness of the face, arm or leg; especially on one side of the body, sudden confusion, trouble speaking or understanding, sudden trouble seeing in one or both eyes, sudden trouble walking, dizziness, loss of balance or coordination, sudden severe headache with no cause. Call 911 or go to the Emergency Room. CONGESTIVE HEART FAILURE: If you have been diagnosed with Congestive Heart Failure (CHF) and your symptoms return, make an appointment with your physician Weigh yourself daily. Notify your physician if you have a weight gain of two or more pounds in one day or five or more pounds in one week. If you experience any difficulty breathing, please call 911 BLEEDING: Although the risk of bleeding is minimal, it can happen. If you have any bleeding from the site, apply firm pressure above the puncture site for 10-15 minutes. If the bleeding does not stop, continue manual pressure and call 911 Contact your physician if: You develop a fever greater than 101 degrees Fahrenheit Your site becomes reddened or has any drainage You have an increase in pain or burning at the site or if a large knot forms at the site. If you experience chest pain, shortness of breath, dizziness, or extreme tiredness, stop the activity and rest. Please notify your physicians office if you experience any of these symptoms and they are not relieved by rest please call 911! - Diet and Activity Activity: increase activity as tolerated Diet: low fat, low cholesterol, low salt diet - Hospital Course Hospital course: Ms. Cancino is a 45 year old female who presented with severe back pain radiating to her chest and tingling radiating down both of her arms. Initial troponin was 21.96 and EKG showed changes concerning for ischemia. She was taken emergently for LHC and found to have a 70% stenosis in her 1st diagonal artery. PTCA and YOHANA was placed. EF 45% with LV gram with normal LV size. No significant disease otherwise. She was loaded on brilinta. Her chest pain resolved but she continued to have reproducible upper back pain. CT scan ordered after pt voiced concern d/t mother having aortic dissection. CT was negative for acute finding. Thoracic aorta was normal in size. Mild degenerative disc disease seen. There was small pulmonary nodules and repeat CT was recommended in one year. CXR showed no acute finding. A cervical and thoracic spine x-ray was negative. She was given a lidocaine patch with some relief. She was also recently started on flexerill and Ibuprofen. Instructed to stop ibuprofen. Back pain is muscle skeletal. She is recommended to follow with her PCP for further recommendation. Pt was noted to have leukocytosis. She is currently on medrol pack for back pain. Also reports following with hematology for chronic leukocytosis. PLT decreases after IV heparin and aggrastat. Will need close follow-up. Lab order given to draw CBC in 2 days. 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 Pt takes for endometriosis. Right groin access without hematoma. Mildly tender to palpation. Ambulating without discomfort. Importance of DAPT with asa and brilinta reviewed with patient and she voiced understanding. 30 day free brilinta card given. - Time Spent with Patient Total time spent providing and/or coordinating discharge services: Greater than 30 minutes (1 hr, discussing activity restrictions, d/c summary, and med rec.) Physical Examination Vital Signs, Last 4 Hours Temp Pulse Resp BP Pulse Ox 07/26/16 11:39 97.5 F L 80 18 102/68 98 07/26/16 11:22 64 General: Conversant, No Apparent Distress HEENT: Atraumatic, Normocephaly, Mucus Membranes Moist Neck: No JVD, Normal carotid pulses Cardiac: Reg Rate and Rhythm, Normal S1 and S2, No Murmur Lungs: Normal Breath Sounds, No Wheeze, Rales, Rhonchi Neuro: Alert and responsive, No focal deficits noted Abdomen: Soft, Non-Tender Skin: No rashes noted on visualized skin Musculoskeletal: No Chest Wall Tenderness Extremities: No Clubbing, No Cyanosis, No Edema, Normal Pulses, Other (Right groin dressing removed. No hematoma. )
--- NOTE | 2016-07-26 15:00 | ECHO - Doppler Report ---
Echocardiogram Name: Elissa Cancino Date of Study: 07/26/2016 Date: 1970 Ht: 65.0 in Medical Record#: [id number] Age: 45 Wt: 138.0 lb Gender: Female BSA: 1.69 Order #: [id number] Location: [facility] Room #: 2N12 Reading Physician: Silvia Onofre DO [address] Office Assistant: Sinai Solis RVT Ordering Physician: Alton Mendoza MD, [facility] Primary Physician: Violetta Forrest MD Indications: ACS Impressions: LVEF 60%. Normal left ventricular size and systolic function. Normal diastolic function of the left ventricle. Normal right ventricular size and function. Mild mitral regurgitation. Mild tricuspid regurgitation. Estimated RVSP was 34 mmHg. No pulmonary hypertension. The IVC is dilated. Left Ventricular Wall Motion: Rest Echo Findings All wall segments showed normal motion. Findings: Study Quality * Technically adequate exam. ECG Findings * Normal sinus rhythm. Left Ventricle * LVEF 60%. * Normal LV chamber size, wall thickness and function. * Normal left ventricular diastolic function. Left Atrium * Normal left atrial size. Mitral Valve * No mitral stenosis. * Mildly thickened mitral valve leaflets. * Mildly calcified mitral valve leaflets. * Mild mitral regurgitation. Aortic Valve * No aortic regurgitation. * Aortic valve not well visualized. * No aortic stenosis. Tricuspid Valve * Tricuspid valve not well visualized. * Mild tricuspid regurgitation. * Estimated RA pressure is 15 mmHg. * Estimated RVSP is 34 mmHg. * No pulmonary hypertension. Pulmonic Valve * Pulmonic valve is not well visualized. * No pulmonic stenosis. * No pulmonic regurgitation. Pulmonary Artery * Pulmonary artery not well visualized. Right Ventricle * Normal right ventricular structure and function. * Prominent moderator band. Right Atrium * Normal right atrial size. Interatrial Septum * No evidence of PFO by color Doppler. IVC * The IVC is dilated. * < 50% respiratory change. Pericardium * There is no pericardial effusion present. Aorta * Normally sized aortic root. History Family History of CAD History of CAD/PTCA Myocardial Infarction Measurements: BP: 97/ 66 2D Normal Values IVSd: .90 cm 0.6 - 1.0 cm LVIDd: 4.50 cm 3.7 - 5.6 cm LVIDs: 3.70 cm 1.5 - 3.6 cm AO: 2.40 cm < 4.0 cm LA: 2.90 cm 2.0 - 4.0cm %FS: 17.80 cm >25 % LA volume: 36 Mitral Valve Peak E:1.09 m/sec Peak A:.46 m/sec E/A Ratio:2.4 Peak E' Lat Dixon:13.8 cm/s Peak E' Med Dixon:13.8 cm/s E/E' Lat Ratio:7.9 E/E' Med Ratio:7.9 Tricuspid Valve TV Regurg Peak Grad: 19.00mmHg TV Regurg Peak Dixon: 2.19m/sec Updated by Silvia Onofre on 07/26/2016 2:54:46 PM electronically signed on 07/26/2016 2:56:50 PM with status of Final Wall Motion Ni: 1=Normal, 2=Hypokinesis, 3=Akinesis, 4=Dyskinesis, 5=Aneurysmal, 6=Hyperkinetic, X=Not Visualized (Blank)=Missing
--- NOTE | 2016-07-26 21:00 | Electrocardiograph Report ---
Cat Cardiology Test Date: 2016-07-25 Pat Name: Elissa Cancino Department: 104 Room: 2N12 Gender: F [place] Man: : 1970 Requested By: Order Number: [id number] Reading MD: Silvia Onofre Measurements Intervals [place] Rate: 105 P: 76 ID: [id number] QRS: 85 QRSD: 84 T: 99 QT: 323 QTc: 384 Interpretive Statements SINUS TACHYCARDIA POSSIBLE RIGHT ATRIAL ENLARGEMENT POSSIBLE LEFT ATRIAL ENLARGEMENT POSSIBLE RIGHT VENTRICULAR CONDUCTION DELAY POSSIBLE LATERAL MYOCARDIAL INFARCTION, OF INDETERMINATE AGE Electronically Signed On 07-26-2016 20:59:04 EST by Silvia Onofre
--- NOTE | 2016-07-26 21:17 | Electrocardiograph Report ---
Cat Cardiology Test Date: 2016-07-25 Pat Name: YESSI TRIPP Department: 110 Room: 2N12 Gender: F [place]inner: : 1970 Requested By: Order Number: [id number] Reading MD: Silvia Onofre Measurements Intervals [place] Rate: 84 P: 49 CO: 140 QRS: 83 QRSD: 84 T: 95 QT: 336 QTc: 377 Interpretive Statements SINUS RHYTHM POSSIBLE RIGHT VENTRICULAR CONDUCTION DELAY Electronically Signed On 07-26-2016 21:15:36 EST by Silvia Onofre
--- NOTE | 2016-07-27 15:35 | Invasive Diagnostic Lab ---
Name: Elissa Cancino Date of Study: 07/25/2016 Date: 1970 Ht: 165.0 cm /65.0 in Medical Record#: [id number] Age: 45 Wt: 62.5 kg / 137.79 lb Account/Order#: [id number] Gender: Female BSA: 1.69 Order #: [id number] Fluoro Dose: 280 mGy BMI: 22.96 Procedure Physician: Alton Mendoza MD, [facility] Referring MD: Violetta Chao MD Referring MD: Procedures Performed: LEFT HEART CATH Stent w/ PTCA Single Major Vessel PCI of an Acute ID Moderate Sedation Indications: Non-Stemi with ongoing angina and troponin 21, lateral current of injury on EKG Impressions: There is severe one vessel coronary artery disease. There is mild to moderate LV Dysfunction EF 45% Patient had successful PTCA/Drug-Eluting Stent placement in the proximal Diagonal. Recommendations: Optimal medical therapy of patient's disease. Aggressive risk factor modification. Patient being referred for cardiac rehab. History/Risk Factors: Hypertension Current/Recent Smoker Procedure Access obtained in the right Femoral artery by percutaneous puncture Patient had successful PTCA/Drug-Eluting Stent placement in the proximal Diagonal. Complications: None, None Contrast: Isovue 170ml Hemodynamics: Pressures Site Systolic/ A Wave Diastolic/ V Wave End Diastolic/ Mean HR AO 121 79 98 95 AO 118 78 96 101 LV 114 24 67 104 LV 134 13 69 94 LV 119 -1 17 96 AO 122 72 98 97 AO 115 73 91 95 AO 106 73 88 95 AO 101 73 87 103 AO 116 70 89 106 LV Ventriculography Ejection Method: LV Gram Ejection Fraction: 45% Wall Motion: COWAN Anterobasal Normal Anterolateral Moderate Hypokinesis Apical: Normal Inferoapical Normal Inferobasal Normal Coronary Dominance: Lesion Findings/Interventions * Left Main Coronary Artery The LMCA is angiographically free of disease. * Left Anterior Descending There is a 16 mm long, 80% stenosis in the 1st Diagonal. The lesion has a AYLA flow of 3. An intervention was performed on the 1st Diagonal with a final stenosis of 0%. There were no lesion complications. The final AYLA flow was 3. * Circumflex The Circumflex is angiographically free of disease. The 1st Marginal is angiographically free of disease. * Right Coronary Artery The RCA is angiographically free of disease. The Right PDA is angiographically free of disease. Interventional Device(s) Vessel Segment Type Name Diameter (mm) Length (mm) 1st Diagonal balloon Emerge Monorail 2 8 1st Diagonal drug-eluting stent Synergy 2.25 16 Updated by RT Nneka (R) on 07/25/2016 2:34:44 PM Alton Mendoza MD, FACC electronically signed on 07/27/2016 3:28:56 PM with status of Final
== END 2016-07-26 17:21 | disposition home or self-care (01) | DRG 174 ==
LOC: EMEROO 12:35 → 2NNU 12:35 → EMEROO 13:31
PROVIDERS: ADMIT Emergency Medicine; ATTEND Emergency Medicine